=== PATIENT | male | born 1985 | race Caucasian/White ===

== ENCOUNTER 2016-06-28 18:19 | Emergency (ER) | payer OTHER ==
[2016-06-28] MEDS ORDERED: ONDANSETRON 4 MG/2 ML VIAL ONE (18:37)
[2016-06-28] MEDS ORDERED: NS 1,000 ML IV ONE (18:46)
[2016-06-28 18:51] LABS: % IMMATURE GRANULYOCYTES 0.4 % (0.0-1.1); ABSOLUTE IMMATURE GRANULOCYTES 0.02 10^3/uL (0.00-0.10); ADD DIFF? NO; ADD MORPH? NO; ADD SCAN? NO; ATYPICAL LYMPHOCYTE FLAG 10 (0-99); FRAGMENT RBC FLAG 0 (0-99); HEMATOCRIT 44.1 % (40.0-51.0); HEMOGLOBIN 15.2 g/dL (13.7-17.5); LEFT SHIFT FLG 0 (0-99); LIPEMIA HEMOLYSIS FLAG 90 (0-99); MEAN CELL HEMOGLOBIN 29.3 pg (27.9-34.1); MEAN CELL HEMOGLOBIN CONCENTR. 34.5 g/dL (32.4-36.7); MEAN CELL VOLUME 85.1 fL (81.5-99.8); MEAN PLATELET VOLUME 9.3 fL (8.7-11.7); PLATELET CLUMPS FLAG 0 (0-99); PLATELET COUNT 284 10^3/uL (150-400); RED BLOOD CELL COUNT 5.18 10^6/uL (4.40-6.38)
[2016-06-28 19:03] LABS: ANION GAP 13 mEq/L (8-16); CALCIUM 9.9 mg/dL (8.5-10.4); CARBON DIOXIDE 24 mEq/l (22-31); CHLORIDE 100 mEq/L (97-110); CREATININE 0.8 mg/dL (0.7-1.3); GLOMERULAR FILTRATION RATE > 60; GLUCOSE 87 mg/dL (70-100); POTASSIUM 4.4 mEq/L (3.5-5.2); SODIUM 137 mEq/L (134-144)
--- NOTE | 2016-06-28 19:11 | EDPHY ---
H & P Stated Complaint: abdominal pain and threw up BRB Time Seen by Provider: 06/28/16 18:44 HPI/ROS: CHIEF COMPLAINT: Hematemesis HISTORY OF PRESENT ILLNESS: The patient presents to the ED after an episode of hematemesis. The patient stated that he was eating dinner and was overcome with nausea and diaphoresis. He went to the bathroom and throughout food he is just consumed. The patient retched several times and then developed vomiting with hematemesis. He states that the total blood loss was probably on the order of a few tablespoons. The patient denies any recent melena. The patient denies significant NSAID usage. The patient does report he has been drinking alcohol approximately 5-6 drinks a day for the past year and half. He is also under the care of a therapist at the [facility] and is currently taking on an SSRI and Ativan. The patient denies significant abdominal pain. He has had no recurrent hematemesis since 6:00 p.m.. REVIEW OF SYSTEMS: A comprehensive 10 point review of systems is otherwise negative aside from elements mentioned in the history of present illness. Source: Patient Exam Limitations: No limitations - Personal History Current Tetanus/Diphtheria Vaccine: Yes - Medical/Surgical History Hx Asthma: No Hx Chronic Respiratory Disease: No Hx Diabetes: No Hx Cardiac Disease: No Hx Renal Disease: No Hx Cirrhosis: No Hx Alcoholism: Yes Hx HIV/AIDS: No Other PMH: depression and anxiety - Social History Smoking Status: Light smoker - Physical Exam Exam: General Appearance: Alert, no distress Eyes: Pupils equal and round no pallor or injection ENT, Mouth: Mucous membranes moist Respiratory: There are no retractions, lungs are clear to auscultation Cardiovascular: Regular rate and rhythm Gastrointestinal: Abdomen is soft and nontender, no masses, bowel sounds normal Neurological: A&O, normal motor function, normal sensory exam, normal cranial nerves Skin: Warm and dry, no rashes Musculoskeletal: Neck is supple nontender Extremities: symmetrical, full range of motion Constitutional: Initial Vital Signs Temperature (C) 37.2 C 06/28/16 18:23 Heart Rate 77 06/28/16 18:23 Respiratory Rate 18 06/28/16 18:23 Blood Pressure 154/97 H 06/28/16 18:23 O2 Sat (%) 96 06/28/16 18:23 O2 Delivery Mode Room Air Allergies/Adverse Reactions: No Known Allergies Allergy (Unverified 06/28/16 18:27) Home Medications: Medication Instructions Recorded Gabapentin 600 mg PO DAILY 06/28/16 Pantoprazole Sodium [Protonix 40mg 40 mg PO DAILY #30 tab 06/28/16 (*)] Sertraline HCl 75 mg PO DAILY 06/28/16 Medical Decision Making ED Course/Re-evaluation: The patient presents to the ED after a likely Shirin-Lyle tear. The patient had 1 episode of hematemesis after vomiting food earlier this evening. The patient has had no melena. He has heme-positive brown stool from below. The patient has no evidence of abnormal liver function test or coagulopathy despite his heavy alcohol intake. The patient was observed in the ED and had serial examinations for 3 hours without recurrent hematemesis. I did nahomi Funk and reviewed the patient's case. The patient will be started on daily Protonix. He will return to the ED immediately for any recurrent GI bleeding or melena. The patient will follow up with Gastroenterology service as an outpatient. Differential Diagnosis: Differential diagnosis considered includes Shirin-Lyle tear, upper GI bleed, lower GI bleed, alcoholic gastritis, critical anemia - Data Points Laboratory Results: Laboratory Results 06/28/16 18:37 06/28/16 18:37 06/28/16 06/28/16 06/28/16 19:37 18:37 18:37 WBC RBC Hgb Hct MCV MCH MCHC RDW Plt Count MPV Neut % (Auto) Lymph % (Auto) Warrick % (Auto) Eos % (Auto) Baso % (Auto) Nucleat RBC Rel Count Absolute Neuts (auto) Absolute Lymphs (auto) Absolute Monos (auto) Absolute Eos (auto) Absolute Basos (auto) Absolute Nucleated RBC Immature Gran % Immature Gran # PT 12.5 SEC SEC (12.0-15.0) INR 0.94 (0.83-1.16) APTT 24.8 SEC SEC (23.0-38.0) Sodium Potassium Chloride Carbon Dioxide Anion Gap BUN Creatinine Estimated GFR Glucose Calcium Total Bilirubin 0.7 mg/dL mg/dL (0.1-1.4) Conjugated Bilirubin 0.5 mg/dL mg/dL (0.0-0.5) Unconjugated Bilirubin 0.2 mg/dL mg/dL (0.0-1.1) AST 60 IU/L H IU/L (17-59) ALT 78 IU/L H IU/L (21-72) Alkaline Phosphatase 77 IU/L IU/L (38-126) Total Protein 8.4 g/dL H g/dL (6.3-8.2) Albumin 4.9 g/dL g/dL (3.5-5.0) Lipase 198.0 IU/L IU/L (23-300) Stool Occult Bld Scrn POSITIVE H (NEGATIVE) 06/28/16 06/28/16 18:37 18:37 WBC 5.17 10^3/uL 10^3/uL (3.80-9.50) RBC 5.18 10^6/uL 10^6/uL (4.40-6.38) Hgb 15.2 g/dL g/dL (13.7-17.5) Hct 44.1 % % (40.0-51.0) MCV 85.1 fL fL (81.5-99.8) MCH 29.3 pg pg (27.9-34.1) MCHC 34.5 g/dL g/dL (32.4-36.7) RDW 12.0 % % (11.5-15.2) Plt Count 284 10^3/uL 10^3/uL (150-400) MPV 9.3 fL fL (8.7-11.7) Neut % (Auto) 51.6 % % (39.3-74.2) Lymph % (Auto) 35.4 % % (15.0-45.0) Warrick % (Auto) 9.7 % % (4.5-13.0) Eos % (Auto) 1.4 % % (0.6-7.6) Baso % (Auto) 1.5 % % (0.3-1.7) Nucleat RBC Rel Count 0.0 % % (0.0-0.2) Absolute Neuts (auto) 2.67 10^3/uL 10^3/uL (1.70-6.50) Absolute Lymphs (auto) 1.83 10^3/uL 10^3/uL (1.00-3.00) Absolute Monos (auto) 0.50 10^3/uL 10^3/uL (0.30-0.80) Absolute Eos (auto) 0.07 10^3/uL 10^3/uL (0.03-0.40) Absolute Basos (auto) 0.08 10^3/uL 10^3/uL (0.02-0.10) Absolute Nucleated RBC 0.00 10^3/uL 10^3/uL (0-0.01) Immature Gran % 0.4 % % (0.0-1.1) Immature Gran # 0.02 10^3/uL 10^3/uL (0.00-0.10) PT INR APTT Sodium 137 mEq/L mEq/L (134-144) Potassium 4.4 mEq/L mEq/L (3.5-5.2) Chloride 100 mEq/L mEq/L (97-110) Carbon Dioxide 24 mEq/l mEq/l (22-31) Anion Gap 13 mEq/L mEq/L (8-16) BUN 14 mg/dL mg/dL (7-23) Creatinine 0.8 mg/dL mg/dL (0.7-1.3) Estimated GFR > 60 Glucose 87 mg/dL mg/dL (70-100) Calcium 9.9 mg/dL mg/dL (8.5-10.4) Total Bilirubin Conjugated Bilirubin Unconjugated Bilirubin AST ALT Alkaline Phosphatase Total Protein Albumin Lipase Stool Occult Bld Scrn Medications Given: Discontinued Medications Sodium Chloride (Ns) 1,000 mls @ 0 mls/hr IV ONCE ONE PRN Reason: Wide Open Stop: 06/28/16 18:47 Last Admin: 06/28/16 18:51 Dose: 1,000 mls Ondansetron HCl (Zofran) 4 mg IVP EDNOW ONE Stop: 06/28/16 19:57 Last Admin: 06/28/16 19:56 Dose: 4 mg Departure - Departure Disposition: Home, Routine, Self-Care Clinical Impression: Hematemesis, Alcohol dependence Condition: Good Instructions: Hematemesis (ED) Additional Instructions: 1. Please take Protonix as directed for the next 30 days. 2. Please return to the ED immediately for any recurrent vomiting of blood, dark /tarry stools, pain or lightheadedness. 3. 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 4. Please follow up with the [facility] to establish primary care and to discuss with them Services for assistance for your alcohol dependence. 5. You have also been given the information for the [facility]. Referrals: Cornelius Funk MD [Medical Doctor] - As per Instructions [facility] [Outside] - As per Instructions Prescriptions: Pantoprazole Sodium [Protonix 40mg (*)] 40 mg PO DAILY #30 tab
[2016-06-28 19:23] LABS: INR 0.94 (0.83-1.16); PROTIME(PATIENT) 12.5 SEC (12.0-15.0)
[2016-06-28 19:24] LABS: APTT 24.8 SEC (23.0-38.0)
[2016-06-28 19:29] LABS: ALBUMIN 4.9 g/dL (3.5-5.0); BILIRUBIN,TOTAL 0.7 mg/dL (0.1-1.4); BILIRUBIN-CONJUGATED 0.5 mg/dL (0.0-0.5); BILIRUBIN-UNCONJUGATED 0.2 mg/dL (0.0-1.1); TOTAL PROTEIN 8.4 g/dL (6.3-8.2)
[2016-06-28] MEDS ORDERED: ONDANSETRON 4 MG/2 ML VIAL IVP ONE (19:56)
[2016-06-28 21:06] VITALS: BP 129/79; PULSE 70; RESP 14; TEMP 97.9; O2SAT 94
== END 2016-06-28 21:05 | disposition home or self-care (01) ==
DX: K92.0 Hematemesis (principal); F10.20 Alcohol dependence, uncomplicated; F17.200 Nicotine dependence, unspecified, uncomplicated
CPT/HCPCS: 96374; J2405